=== PATIENT | male | born 1945 | race Caucasian/White ===

== ENCOUNTER 2017-02-11 14:49 | Inpatient (IN) | payer OTHER, BC ==
[~2017-02-11] VITALS: Ht 152.4 cm; Wt 121.5 kg
[2017-02-11 15:54] LABS: HEMATOCRIT 37.7 % (38.0-50.0); MCH 30.7 PG (29.0-34.0); MCHC 33.4 G/DL (30.0-36.0); MCV 91.7 FL (86-99); MEAN PLAT.VOLUME 10.5 uM^3 (9.0-12.4); PLATELET COUNT 134 K/uL (156-360); RBC DIS.WIDTH-CV 12.4 % (11.8-14.6); RBC DIS.WIDTH-SD 41.3 % (39-53); RED BLOOD COUNT 4.11 M/uL (4.00-5.50)
[2017-02-11 16:01] LABS: CHLORIDE 103 mEq/L (99-109); POTASSIUM 4.1 mEq/L (3.7-5.4); SODIUM 137 mEq/L (136-147)
[2017-02-11 16:03] LABS: GLUCOSE 101 mg/dL (70-99)
[2017-02-11 16:04] LABS: ANION GAP 12 MEQ/L (2-14)
[2017-02-11 16:06] LABS: GFR ESTIMATE (CALCULATED) > 59 mL/min/
[2017-02-11 16:07] LABS: UREA NITROGEN (BUN) 13 mg/dL (9-23)
[2017-02-11 16:13] LABS: TROP-I INTERPRETATION NEGATIVE; TROPONIN-I 0.17 ng/mL (0.0-0.30)
[2017-02-11] MEDS ORDERED: CENTRUM SILVER1 EAC5 PO (18:48)
[2017-02-11] MEDS ORDERED: LITE COAT ASPI325 M1 PO (18:48)
[2017-02-11] MEDS ORDERED: OXYCODONE HCL5 MG PO (18:48)
[2017-02-11] MEDS ORDERED: FLONASE16 G1 BOTH NARES (18:49)
[2017-02-11] MEDS ORDERED: LOTREL 5/201 CAPSULE PO (18:49)
[2017-02-11] MEDS ORDERED: MUPIROCIN22 GM TP (18:49)
[2017-02-11] MEDS ORDERED: TOPROL XL50 MG PO (18:49)
[2017-02-11] MEDS ORDERED: ZANTAC300 MG PO (18:49)
[2017-02-11] MEDS ORDERED: BENADRYL ALLERG25 MG PO (18:50)
[2017-02-11] MEDS ORDERED: METAMUCIL POWD822 G1 PO (18:50)
[2017-02-11] MEDS ORDERED: TYLENOL REGULA325 MG PO (18:50)
[2017-02-11] MEDS ORDERED: PROTONIX40 MG PO (18:50)
[2017-02-11 19:04] LABS: PROTHROMBIN TIME 11.2 SEC (10.2-12.9)
[2017-02-11 19:07] LABS: PTT 33.7 SEC (25-37)
[2017-02-11 21:58] VITALS: BP 146/77
[2017-02-11 22:30] LABS: TROP-I INTERPRETATION POSITIVE; TROPONIN-I 0.86 ng/mL (0.0-0.30)
[2017-02-12 03:42] VITALS: BP 140/82
[2017-02-12 05:58] LABS: INTER. NORMALIZED RATIO 1.2; PROTHROMBIN TIME 13.6 SEC (10.2-12.9)
[2017-02-12 06:05] LABS: HEMATOCRIT 37.3 % (38.0-50.0); MCH 30.3 PG (29.0-34.0); MCHC 32.7 G/DL (30.0-36.0); MCV 92.6 FL (86-99); MEAN PLAT.VOLUME 10.7 uM^3 (9.0-12.4); PLATELET COUNT 102 K/uL (156-360); RBC DIS.WIDTH-CV 12.5 % (11.8-14.6); RBC DIS.WIDTH-SD 42.6 % (39-53); RED BLOOD COUNT 4.03 M/uL (4.00-5.50); WHITE BLOOD COUNT 5.8 K/uL (4.1-10.2)
[2017-02-12 06:40] LABS: ALKALINE PHOSPHATASE 72 IU/L (3-129); ANION GAP 9 MEQ/L (2-14); CHLORIDE 103 MEQ/L (99-109); GFR ESTIMATE (CALCULATED) > 59 mL/min/; GLUCOSE 119 mg/dL (70-99); POTASSIUM 4.4 MEQ/L (3.7-5.4); SAMPLE HEMOLYSIS CHECK 0; SAMPLE ICTERIC CHECK 0; SAMPLE LIPEMIA CHECK 0; SODIUM 137 MEQ/L (136-147); TOTAL BILIRUBIN 0.8 MG/DL (0.0-1.0); UREA NITROGEN (BUN) 12 mg/dL (9-23)
[2017-02-12 06:44] LABS: TROP-I INTERPRETATION INDETERMINATE; TROPONIN-I 0.45 ng/mL (0.0-0.30)
[2017-02-12 07:44] VITALS: BP 143/81
[2017-02-12 11:01] VITALS: BP 125/72
[2017-02-12 14:51] LABS: TROP-I INTERPRETATION INDETERMINATE; TROPONIN-I 0.38 ng/mL (0.0-0.30)
[2017-02-12 15:08] VITALS: BP 113/72
[2017-02-12 20:00] VITALS: BP 145/81
[2017-02-13] VITALS (7 sets, daily range): BP systolic 122–136; BP diastolic 69–83
[2017-02-13 03:05] LABS: BASOPHIL COUNT 0.1 K/uL (0-0.1); EOSINOPHIL (%) 3.4 % (0-5); EOSINOPHIL COUNT 0.2 K/uL (0-0.3); HEMATOCRIT 35.5 % (38.0-50.0); IMMATURE GRANULOCYTE (%) 2.4 % (0.0-0.7); IMMATURE GRANULOCYTE COUNT 0.1 K/uL; INSTRUMENT ABS NEUTROPHIL CT 2.7 K/uL; MCHC 33.2 G/DL (30.0-36.0); MCV 93.2 FL (86-99); MONOCYTE (%) 11.9 % (3-12); MONOCYTE COUNT 0.7 K/uL (0-0.8); NEUTROPHIL COUNT 2.7 K/uL (1.8-6.4); RBC DIS.WIDTH-CV 12.4 % (11.8-14.6); RBC DIS.WIDTH-SD 42.5 % (39-53); RED BLOOD COUNT 3.81 M/uL (4.00-5.50); WHITE BLOOD COUNT 5.9 K/uL (4.1-10.2)
[2017-02-13 03:09] LABS: INTER. NORMALIZED RATIO 1.2; PROTHROMBIN TIME 13.2 SEC (10.2-12.9)
[2017-02-13 03:17] LABS: CHLORIDE 103 mEq/L (99-109); POTASSIUM 4.4 mEq/L (3.7-5.4); SODIUM 138 mEq/L (136-147)
[2017-02-13 03:18] LABS: GLUCOSE 114 mg/dL (70-99)
[2017-02-13 03:20] LABS: ANION GAP 10 MEQ/L (2-14)
[2017-02-13 03:22] LABS: GFR ESTIMATE (CALCULATED) > 59 mL/min/
[2017-02-13 03:23] LABS: UREA NITROGEN (BUN) 16 mg/dL (9-23)
[2017-02-13 03:45] LABS: MEAN PLAT.VOLUME 10.3 uM^3 (9.0-12.4); PLAT.SUFFICIENCY DECREASED
[2017-02-13 04:22] LABS: PLATELET COUNT 66 K/uL (156-360)
[2017-02-13 18:17] LABS: HEMATOCRIT 38.1 % (38.0-50.0); MCV 92.3 FL (86-99)
[2017-02-13 21:01] LABS: MCV 92.5 FL (86-99)
[2017-02-14 03:10] VITALS: BP 132/74
[2017-02-14 05:36] LABS: HEMATOCRIT 35.9 % (38.0-50.0); MCH 30.7 PG (29.0-34.0); MCHC 33.1 G/DL (30.0-36.0); MCV 92.5 FL (86-99); RBC DIS.WIDTH-CV 12.5 % (11.8-14.6); RBC DIS.WIDTH-SD 42.4 % (39-53); RED BLOOD COUNT 3.88 M/uL (4.00-5.50); WHITE BLOOD COUNT 5.4 K/uL (4.1-10.2)
[2017-02-14 05:55] LABS: INTER. NORMALIZED RATIO 1.4
[2017-02-14 06:01] LABS: IMM.PLATELET FRACTION 8.7 (1-7); MEAN PLAT.VOLUME 10.3 uM^3 (9.0-12.4); PLATELET COUNT 49 K/uL (156-360)
[2017-02-14 06:10] LABS: PLAT.SUFFICIENCY VERY DECREASED
[2017-02-14 06:19] LABS: PTT 33.9 SEC (25-37)
[2017-02-14 07:46] VITALS: BP 142/78
[2017-02-14 09:51] LABS: TROP-I INTERPRETATION NEGATIVE; TROPONIN-I 0.09 ng/mL (0.0-0.30)
[2017-02-14 11:23] VITALS: BP 144/76
[2017-02-14 12:09] LABS: HEMATOCRIT 36.7 % (38.0-50.0); MCV 92.4 FL (86-99)
[2017-02-14 17:37] LABS: HEMATOCRIT 37.6 % (38.0-50.0); MCV 92.8 FL (86-99)
[2017-02-14 20:00] VITALS: BP 141/78
[2017-02-14 23:55] VITALS: BP 155/87
[2017-02-15 00:52] LABS: HEMATOCRIT 36.4 % (38.0-50.0); MCV 91.7 FL (86-99)
[2017-02-15 04:00] VITALS: BP 165/81
[2017-02-15 05:45] LABS: HEMATOCRIT 36.3 % (38.0-50.0); MCH 31.5 PG (29.0-34.0); MCHC 33.9 G/DL (30.0-36.0); MCV 93.1 FL (86-99); MEAN PLAT.VOLUME 11.6 uM^3 (9.0-12.4); PLATELET COUNT 55 K/uL (156-360); RBC DIS.WIDTH-CV 12.7 % (11.8-14.6); RBC DIS.WIDTH-SD 42.9 % (39-53)
[2017-02-15 06:15] LABS: INTER. NORMALIZED RATIO 1.6
[2017-02-15 07:19] VITALS: BP 128/64
[2017-02-15 11:02] VITALS: BP 123/73
[2017-02-15 12:51] LABS: THROMBIN TIME+ 20 (H) sec
[2017-02-15 13:54] LABS: Heparin Induced Plt Ab Positive (Negative)
[2017-02-15 16:14] VITALS: BP 121/73
[2017-02-15 16:33] LABS: UFH SRA Result POSITIVE (Negative)
[2017-02-15 19:18] VITALS: BP 123/88
[2017-02-15 22:57] VITALS: BP 137/70
[2017-02-16 04:12] VITALS: BP 146/80
[2017-02-16 05:16] LABS: HEMATOCRIT 35.8 % (38.0-50.0); MCH 30.9 PG (29.0-34.0); MCHC 33.5 G/DL (30.0-36.0); MCV 92.3 FL (86-99); MEAN PLAT.VOLUME 11.4 uM^3 (9.0-12.4); PLATELET COUNT 58 K/uL (156-360); RBC DIS.WIDTH-CV 12.8 % (11.8-14.6); RBC DIS.WIDTH-SD 42.9 % (39-53); RED BLOOD COUNT 3.88 M/uL (4.00-5.50); WHITE BLOOD COUNT 6.3 K/uL (4.1-10.2)
[2017-02-16 05:19] LABS: INTER. NORMALIZED RATIO 2.2; PROTHROMBIN TIME 25.1 SEC (10.2-12.9)
[2017-02-16 07:00] VITALS: BP 137/71
[2017-02-16 11:32] VITALS: BP 133/67
[2017-02-16] MEDS ORDERED: COUMADIN7.5 MG PO (12:10)
[2017-02-17 18:06] LABS: DRVVT Mixing Study Interp Not Indicated (()); PROTEIN C FUNCTIONAL ACTIVITY+ 111 % (70-180); PTT-LA >200 sec (<=40); PTT-LA Reflex Has been added (()); Protein S, Free 109 % normal (57-171); dRVVT Screen 45 sec (<=45)
[2017-02-19 21:51] LABS: ANTITHROMBIN III ACTIVITY+ 90 % activi (80-120)
== END 2017-02-16 13:06 | disposition home or self-care (01) | DRG 299 ==
LOC: EME 14:49 → 4EAST 18:34 → 5SOUTH 18:34 → ENRESERV 18:34 → EDOF 18:34 → ENRESERV 20:47 → 5SOUTH 21:40 → ENRESERV 02-13 21:06 → 4EAST 02-13 22:56 → ENRESERV 02-14 15:47 → CANRESERV 02-15 04:29 → ENRESERV 02-15 04:29 → 4EAST 02-16 13:06
PROVIDERS: Emergency Medicine; Hospitalist; Internal Medicine; Internal Medicine Hematology & Oncology
DX: I82.442 Acute embolism and thrombosis of left tibial vein (principal); I26.99 Other pulmonary embolism without acute cor pulmonale; D69.59 Other secondary thrombocytopenia; D75.82 Heparin induced thrombocytopenia (HIT); Z68.41 Body mass index [BMI] 40.0-44.9, adult; Z91.81 History of falling; Z96.652 Presence of left artificial knee joint; I10 Essential (primary) hypertension; K21.9 Gastro-esophageal reflux disease without esophagitis; I44.7 Left bundle-branch block, unspecified; R09.02 Hypoxemia; K22.70 Barrett's esophagus without dysplasia; I80.02 Phlebitis and thrombophlebitis of superficial vessels of left lower extremity; M19.90 Unspecified osteoarthritis, unspecified site; K76.0 Fatty (change of) liver, not elsewhere classified; E66.9 Obesity, unspecified; Z79.82 Long term (current) use of aspirin; Z85.828 Personal history of other malignant neoplasm of skin; Z90.49 Acquired absence of other specified parts of digestive tract
CPT/HCPCS: 71020; 71275; 80048; 80053; 81240 90; 83090 90; 83880; 84484; 85014; 85018; 85025; 85027; 85240 90; 85300 90; 85303 90; 85305 90; 85306 90; 85307 90; 85610; 85613 90; 85670 90; 85730; 85730 90; 86022 90; 86146 90; 86147 90; 86900; 86901; 93005; 93306; 93970; 94799; 99281; 99284